=== PATIENT | male | born 1990 | race Two or more races ===

== ENCOUNTER 2017-11-04 21:59 | Emergency (ER) | payer SELFPAY ==
--- NOTE | 2017-11-04 23:55 | ED ---
Skin Complaint - HPI Summary HPI Summary: Patient is a 27 y/o M w/ c/o right index finger burn and numbness. He states that he burned his finger on a cast iron two days ago. Patient reports that he had a blister on this finger, but he "flicked it off". He states that he began to experience numbness in this finger and the proximal area today. Patient also reports some swelling at his right index finger. Last tetanus shot is reported to have been within the past five years. On triage, associated pain is rated 1/ 10. Home medications and allergies are reviewed. - History of Current Complaint Chief Complaint: EDExtremityUpper Time Seen by Provider: 11/04/17 23:36 Stated Complaint: BURN Hx Obtained From: Patient Onset/Duration: Started Hours Ago - numbness onset today, Started Days Ago - two days ago finger burn, Still Present Skin Exposure Onset/Duration: Days Ago - two days Timing: Constant, Lasting Days - two days Current Severity: Mild - 1/10 Pain Intensity: 1 Pain Scale Used: 0-10 Numeric - 1/10 Skin Location: Hand - right index finger Character: Swelling, Pain Associated Signs & Symptoms: Numbness - right index finger numbness - Allergy/Home Medications Allergies/Adverse Reactions: Allergies Allergy/AdvReac Type Severity Reaction Status Date / Time No Known Allergies Allergy Verified 11/04/17 22:09 PMH/Surg Hx/FS Hx/Imm Hx Sensory History: Denies: Hx Legally Blind, Hx Deafness Opthamlomology History: Denies: Hx Legally Blind EENT History: Denies: Hx Deafness Infectious Disease History: No Infectious Disease History: Denies: Traveled Outside the [place] in Last 30 Days - Family History Known Family History: Negative: Blood Disorder - Social History Lives: With Family Substance Use Type: Reports: None Review of Systems Negative: Fever - on vitals, temp is 98 F Positive: Other - burn at right index finger Positive: Numbness - right index finger All Other Systems Reviewed And Are Negative: Yes Physical Exam - Summary Physical Exam Summary: VITAL SIGNS: Reviewed. GENERAL: Patient is a well-developed and nourished male who is lying comfortable in the stretcher. Patient is not in any acute respiratory distress. HEAD AND FACE: No signs of trauma. No ecchymosis, hematomas or skull depressions. No sinus tenderness. EYES: PERRLA, EOMI x 2, No injected conjunctiva, no nystagmus. EARS: Hearing grossly intact. Ear canals and tympanic membranes are within normal limits. MOUTH: Oropharynx within normal limits. NECK: Supple, trachea is midline, no adenopathy, no JVD, no carotid bruit, no c- spine tenderness, neck with full ROM. CHEST: Symmetric, no tenderness at palpation LUNGS: Clear to auscultation bilaterally. No wheezing or crackles. CVS: Regular rate and rhythm, S1 and S2 present, no murmurs or gallops appreciated. ABDOMEN: Soft, non-tender. No signs of distention. No rebound no guarding, and no masses palpated. Bowel sounds are normal. EXTREMITIES: FROM in all major joints, no edema, no cyanosis or clubbing. NEURO: Alert and oriented x 3. No acute neurological deficits. Speech is normal and follows commands. SKIN: Dry and warm; mild erythema, second degree burn at right index finger Triage Information Reviewed: Yes Vital Signs On Initial Exam: Initial Vitals Temp Pulse Resp BP Pulse Ox 98.0 F 87 16 124/72 98 11/04/17 22:07 11/04/17 22:07 11/04/17 22:07 11/04/17 22:07 11/04/17 22:07 Vital Signs Reviewed: Yes Diagnostics - Vital Signs Vital Signs Temp Pulse Resp BP Pulse Ox 11/04/17 22:07 98.0 F 87 16 124/72 98 - Laboratory Lab Statement: Any lab studies that have been ordered have been reviewed, and results considered in the medical decision making process. Course/Dx - Course Assessment/Plan: Patient is a 27 y/o M w/ c/o right index finger burn and numbness. He states that he burned his finger on a cast iron two days ago. Patient reports that he had a blister on this finger, but he "flicked it off". He states that he began to experience numbness in this finger and the proximal area today. Patient also reports some swelling at his right index finger. Last tetanus shot is reported to have been within the past five years. On triage, associated pain is rated 1/10. PE showed mild erythema, second degree burn at right index finger. Silvadene as well as telfa and 2" kerlex were applied to right index finger. Patient was discharged to home and instructed to follow up with primary care physician as well as to apply silvadene once a day. Patient understands and is agreeable with this plan. Dx of second degree burn of single finger of right hand, not thumb. - Diagnoses Provider Diagnoses: Second degree burn of single finger of right hand, not thumb Discharge - Sign-Out/Discharge Documenting (check all that apply): Patient Departure - discharge - Discharge Plan Condition: Stable Disposition: HOME Patient Education Materials: Second Degree Burn (ED) Forms: *Work Release Referrals: Care [facility] [Outside] - 2 Days Additional Instructions: APPLY SILVADENE CREAM TOPICALLY ONCE A DAY. RETURN TO THE EMERGENCY DEPARTMENT FOR CHANGING OR WORSENING SYMPTOMS. FOLLOW UP WITH PRIMARY CARE PHYSICIAN IN 1- 2 DAYS. - Attestation Statements Document Initiated by Scribe: Yes Documenting Scribe: Jerome Wright Provider For Whom Bruno is Documenting (Include Credential): Jerald Rodriguez MD Scribe Attestation: Jerome Pérez , scribed for Jerald Rodriguez MD on 11/05/17 at 0208.
[2017-11-04] MEDS ORDERED: Silver Sulfadiazine 1%* 20 GM ONE (23:56)
[2017-11-05 01:17] VITALS: BP 119/69
[2017-11-05] MEDS ORDERED: Silver Sulfadiazine 1%* 20 GM TOPICAL SCH (09:00)
== END 2017-11-05 01:15 | disposition home or self-care (01) ==
LOC: ED 21:59
DX: T23.221A Burn of second degree of single right finger (nail) except thumb, initial encounter (principal); X08.8XXA Exposure to other specified smoke, fire and flames, initial encounter; Y92.9 Unspecified place or not applicable; R20.0 Anesthesia of skin
CPT/HCPCS: 99281; A9270-GY

== ENCOUNTER 2018-10-14 02:16 | Emergency (ER) | payer BC ==
[2018-10-14] MEDS ORDERED: Tetan/Diph/Pertus SYR(Tdap)* 0.5 ML SYR(BOOSTRIX) use SYR IM ONE (02:54)
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
[2018-10-14] MEDS ORDERED: Acetaminophen TAB* 325 MG PO ONE (03:22)
[2018-10-14 04:18] VITALS: BP 105/75
== END 2018-10-14 04:19 | disposition home or self-care (01) ==
LOC: ED 02:16
DX: S80.211A Abrasion, right knee, initial encounter (principal); V18.0XXA Pedal cycle driver injured in noncollision transport accident in nontraffic accident, initial encounter; Y93.55 Activity, bike riding; Y92.89 Other specified places as the place of occurrence of the external cause; Z23 Encounter for immunization
CPT/HCPCS: 90471; 90715; 99283; A9270-GY